=== PATIENT | female | born 1980 | race Two or more races ===

== ENCOUNTER → 2017-04-06 | Outpatient (CLI) | payer OTHER ==
--- NOTE | 2017-04-06 10:59 | RAD ---
UPPER EXT JOINT WO CONT LEFT dated 04/06/2017 10:30 AM Indication: LEFT SHOULDER PAIN X 3 MONTHS, NKI, NO SX HX, NO PRIORS pain , 3 months. Comparison: No comparison is available. Technique: Routine multiplanar multisequence imaging performed. No contrast administered. Findings: Study is limited due to motion artifact. There is intermediate T2 signal throughout the supraspinatus and infraspinatus portions of the rotator cuff. There is a small full-thickness defect of the anterior supraspinatus footplate that measures about 9 mm maximum thickness. Minimal cuff retraction. Subscapularis is intact. Mild hypertrophic change of the AC joint. No significant undersurface spurring. Trace amount of subacromial/subdeltoid bursal fluid. Mild increased signal within the substance of the long head biceps tendon proximally. Extra articular portion courses within the bicipital groove. Biceps anchor intact. Glenoid labrum is grossly intact. No apparent labral tear or para labral cyst. No glenohumeral joint effusion or loose body. Suprascapular and spinoglenoid notches are clear. No significant muscle edema or muscle atrophy. IMPRESSION: 1. Rotator cuff tendinopathy with small full-thickness tear at the anterior supraspinatus footplate. 2. Mild AC joint arthropathy. 3. Mild proximal biceps tendinosis. Electronically signed by: Suraj Champion MD (04/06/2017 10:55 AM) [id number]
== END | disposition home or self-care (01) ==
LOC: MRI 09:54
PROVIDERS: ATTEND Family Medicine
DX: M75.102 Unspecified rotator cuff tear or rupture of left shoulder, not specified as traumatic (principal); M12.812 Other specific arthropathies, not elsewhere classified, left shoulder
CPT/HCPCS: 73221

== ENCOUNTER 2017-04-11 20:13 | Emergency (ER) | payer SELFPAY ==
[~2017-04-11] VITALS: Ht 160 cm; Wt 95.3 kg
[2017-04-11 20:55] VITALS: BP 164/98
[2017-04-11] MEDS ORDERED: FLUORESCEIN OPHTH TEST STRIP. OS ONE (21:15)
[2017-04-11] MEDS ORDERED: TETRACAINE 0.5% OPHTH SOLUTION 4ML BOTTLE. OS ONE (21:15)
[2017-04-11] MEDS ORDERED: DIPHTH,PERTUSS(ACELL),TET TOX 0.5 ML DISP.SYRIN. VAX IM ONE (22:15)
[2017-04-11] MEDS ORDERED: TRAM-48 PO (22:46)
[2017-04-11] MEDS ORDERED: ERYT1OIN6 OP (22:46)
--- NOTE | 2017-04-11 22:47 | PHYS DOC ---
Adult General Chief Complaint Chief Complaint: EYE PROBLEMS HPI HPI Patient is a 37 year old female who presents with possible foreign body to the right eye. Patient states she was cutting wood with no eye protection and a piece of wood could have gotten in her right eye. Denies any vision loss. Review of Systems Review of Systems Constitutional: Denies fever or chills [] Eyes: Possible foreign body to the right eye. Denies change in visual acuity, redness Musculoskeletal: Denies back pain or joint pain [] Integument: Denies rash or skin lesions [] Neurologic: Denies headache, focal weakness or sensory changes [] All other systems were reviewed and found to be within normal limits, except as documented in this note. Current Medications Current Medications Current Medications Medications (Trade) Dose Ordered Sig/Rosibel Start Time Stop Time Status Last Admin Dose Admin Diphtheria/ Tetanus/Acell Pertussis (Boostrix) 0.5 ml ONCE ONCE 04/11/17 22:15 04/11/17 22:16 DC 04/11/17 22:48 0.5 ML Fluorescein Sodium (Ful-Leila) 1 strip 1X ONCE 04/11/17 21:15 04/11/17 21:25 DC 04/11/17 21:18 1 STRIP Tetracaine HCl (Tetracaine) 1 drop 1X ONCE 04/11/17 21:15 04/11/17 21:25 DC 04/11/17 21:17 1 DROP Allergies Allergies Allergies Coded Allergies Type Severity Reaction Last Updated Verified No Known Drug Allergies 04/11/17 No Physical Exam Physical Exam Constitutional: Well developed, well nourished, no acute distress, non-toxic appearance. [] HENT: Normocephalic, atraumatic, bilateral external ears normal, oropharynx moist, no oral exudates, nose normal. [] Eyes: PERRLA, EOMI, right conjunctiva is mildly injected most of it from irritation. No obvious foreign object noted. Skin: Warm, dry, no erythema, no rash. [] Back: No tenderness, no CVA tenderness. [] Extremities: No tenderness, no cyanosis, no clubbing, ROM intact, no edema. [] Neurologic: Alert and oriented X 3, normal motor function, normal sensory function, no focal deficits noted. [] Psychologic: Affect normal, judgement normal, mood normal. [] EKG EKG [] Radiology/Procedures Radiology/Procedures Indication: Right eye possible foreign object Procedure: The area of the foreign body was right eye. Local anesthesia over the foreign body site was [ANESTHESIA:]. The foreign body to drops of tetracaine, the eye was stained with fluorescein, no foreign object was noted. The patient's tetanus was updated The patient tolerated the procedure well Complications: none Course & Med Decision Making Course & Med Decision Making Pertinent Labs and Imaging studies reviewed. (See chart for details) Patient is in the ED with complaints of a possible foreign object to the right eye, she was cutting wood with no eye protection. No obvious foreign object was noted in the eye exam. Patient was discharged with erythromycin and Ultram. Tetanus was updated. Follow-up with tire room supervisor in 1-3 days if symptoms continue. Dragon Disclaimer Dragon Disclaimer This electronic medical record was generated, in whole or in part, using a voice recognition dictation system. Departure Departure Impression: Primary Impression: Foreign body of right eye Disposition: HOME, SELF-CARE Condition: STABLE Referrals: NO PCP (PCP) LATOYA STALLINGS MD follow up in 1-3 days Patient Instructions: Eye - Foreign Body Additional Instructions: You were seen with concern for foreign object to the right eye. We did not find any foreign object to the right eye but you could have a corneal abrasion/cut in the eye from a piece of wood touching your eye. We sent you home with erythromycin eye ointment. Use it as prescribed. Take the prescribed pain medicine as needed for pain. Follow-up with the provided tire room supervisor/eye doctor in the next 1-3 days. Scripts Tramadol Hcl (ULTRAM) 50 Mg Tablet 1 TAB PO Q6HRS, #30 TAB Prov: CECILE HAYWOOD APRN 04/11/17 Erythromycin Base (Erythromycin) 1 Gm Oint...g. 1 KAJAL OP Q4HRS W/A, #1 MISC right eye Prov: CECILE HAYWOOD APRN 04/11/17 Problem Qualifiers Primary Impression: Foreign body of right eye Encounter type: initial encounter Qualified Codes: T15.91XA - Foreign body on external eye, part unspecified, right eye, initial encounter CECILE HAYWOOD APRN Apr 11, 2017 22:47
== END 2017-04-11 23:00 | disposition home or self-care (01) ==
LOC: ER 20:13
DX: T15.91XA Foreign body on external eye, part unspecified, right eye, initial encounter (principal)
CPT/HCPCS: 90471; 90715; 99283-25

== ENCOUNTER 2019-11-09 13:31 | Emergency (ER) | payer SELFPAY ==
[~2019-11-09] VITALS: Ht 160 cm; Wt 107.2 kg
[~2019-11-09 13:31] MED LIST: ERYT1OIN6 OP; TRAM-48 PO
[2019-11-09 14:28] LABS: BILIRUBIN,URINE NEGATIVE (NEG); CLARITY,URINE CLOUDY; COLOR,URINE RED; NITRITE,URINE NEGATIVE (NEG); PROTEIN,URINE 100 mg/dL (NEG-TRACE); UROBILINOGEN,URINE 0.2 mg/dL (0.2 mg/dL)
[2019-11-09 14:36] LABS: RBC,URINE TNTC /HPF (0-2)
[2019-11-09 14:37] LABS: BACTERIA,URINE 0 /HPF (0-FEW); SQUAMOUS EPITHELIAL CELL,UR FEW /LPF
--- NOTE | 2019-11-09 15:24 | PHYS DOC ---
Past Medical History Past Medical History: No Pertinent History Past Surgical History: , Tubal ligation Smoking Status: Never Smoker Alcohol Use: None Drug Use: None General Adult EDM: Chief Complaint: VAGINAL PROBLEM HPI: HPI: Patient is a 39 year old female who presents to the emergency d [facility] with complaints of irregular vaginal bleeding. She reports that she had a period began on October 29, 2019 it lasted for approximately 7 or 8 days the bleeding stopped for 2 days and then she began to bleed again today. She denies any irregular vaginal odor, irregular vaginal discharge prior to the onset of the bleeding. She denies any abdominal pain, nausea, vomiting, diarrhea, back pain, fever, cough, shortness of breath, dysuria, or foul-smelling urine. She denies any pain at this time. Patient states that last March, April, and May she did not have a menstrual cycle. She states she has been having some irregular menstrual bleeding for months. Patient reports history of a BTL 20 years ago, she denies any concerns of , the patient is 3, para 3. Review of Systems: Review of Systems: Constitutional: Denies fever or chills. [] GI: Denies abdominal pain, nausea, vomiting, or diarrhea. [] : Denies dysuria; see HPI. [] Musculoskeletal: Denies back pain or joint pain. [] Integument: Denies rash. [] Psychiatric: Denies depression or anxiety. [] Heart Score: Risk Factors: Risk Factors: DM, Current or recent (<one month) smoker, HTN, HLP, family history of CAD, obesity. Risk Scores: Score 0 - 3: 2.5% MACE over next 6 weeks - Discharge Home Score 4 - 6: 20.3% MACE over next 6 weeks - Admit for Clinical Observation Score 7 - 10: 72.7% MACE over next 6 weeks - Early Invasive Strategies Allergies: Allergies: Allergies Coded Allergies Type Severity Reaction Last Updated Verified No Known Drug Allergies 04/11/17 No Physical Exam: PE: Constitutional: Well developed, well nourished, no acute distress, non-toxic appearance. HENT: Normocephalic, atraumatic, bilateral external ears normal, nose normal. Eyes: PERRLA, EOMI, conjunctiva normal, no discharge. Neck: Normal range of motion, no stridor. Cardiovascular: Heart rate regular rhythm Lungs & Thorax: Respirations even and unlabored, no retractions, no respiratory distress Pelvic Exam: [employer] present Susana SANCHEZ Abdomen: Nontender, soft External Genitalia: Normal Skin Speculum: Normal vaginal mucosa, normal bloody cervical discharge without clots Bimanual: No adnexal masses or tenderness, No CMT Skin: Warm, dry, no erythema, no rash. Extremities: No cyanosis, ROM intact, no edema. Neurologic: Alert and oriented X 3, no focal deficits noted. Psychologic: Affect normal, judgement normal, mood normal. Current Patient Data: Labs: Laboratory Tests Test 11/09/19 14:05 11/09/19 14:17 Urine Collection Type U cath Urine Color Red Urine Clarity Cloudy Urine pH 6.0 (<5.0-8.0) Urine Specific [place] <=1.005 (1.000-1.030) Urine Protein 100 mg/dL (NEG-TRACE) Urine Glucose (UA) Negative mg/dL (NEG) Urine Ketones (Stick) Negative mg/dL (NEG) Urine Blood Large (NEG) Urine Nitrite Negative (NEG) Urine Bilirubin Negative (NEG) Urine Urobilinogen Dipstick 0.2 mg/dL (0.2 mg/dL) Urine Leukocyte Esterase Small (NEG) Urine RBC Tntc /HPF (0-2) Urine WBC 1-4 /HPF (0-4) Urine Squamous Epithelial Cells Few /LPF Urine Bacteria 0 /HPF (0-FEW) POC Urine HCG, Qualitative Hcg negative (Negative) Vital Signs: Vital Signs Date Time Temp Pulse Resp B/P (MAP) Pulse Ox O2 Delivery O2 Flow Rate FiO2 11/09/19 14:43 98.8 99 22 137/63 (87) 99 Room Air 98.8 EKG: EKG: [] Radiology/Procedures: Radiology/Procedures: [] Course & Med Decision Making: Course & Med Decision Making Pertinent Labs and Imaging studies reviewed. (See chart for details) Patient is a 39-year-old female who presented to the emergency department with complaints of vaginal bleeding. She reported history of irregular menstrual cycles. Patient reported concerned because she just had a period last week then it stopped for 2 days and she began bleeding again today. Pelvic exam reveals light bleeding from the cervix, no abnormal discharge, no CMT or adnexal tenderness UA is likely contaminated, CBC reveals white blood cell count of 12.9, hemoglobin 10.8, hematocrit 32.6 otherwise unremarkable. Encouraged patient to follow-up with her primary care doctor or her NURSE SPECIAL for further evaluation of irregular menstrual cycles, may take Tylenol or ibuprofen as needed for pain. Return to the ER if symptoms worsen or should begin saturating more than 1 pad an hour. Patient verbalized an understanding of home care, medications, follow-up, and return to ED instructions and was in agreement with the plan of care. [] Dragon Disclaimer: Dragon Disclaimer: This electronic medical record was generated, in whole or in part, using a voice recognition dictation system. Departure Departure Impression: Primary Impression: Vaginal bleeding, abnormal Disposition: HOME, SELF-CARE Condition: STABLE Referrals: NO PCP (PCP) Patient Instructions: Uterine Bleeding, Dysfunctional, [id number] Additional Instructions: Follow-up with your primary care doctor or your NURSE SPECIAL for further evaluation of irregular menstrual cycles. Your urine did not appear infected today. You may take Tylenol or ibuprofen as needed for pain. Return to the ER if symptoms worsen or you are saturating more than 1 pad an hour. Justicifation of Admission Dx: Justifications for Admission: Justification of Admission Dx: N/A ABDIAS HEBERT CHAIRMAN PRESIDENT AND CHIEF EXECUTIVE OFFICER Nov 09, 2019 15:24
[2019-11-09 15:29] LABS: BASO # 0.1 x10^3/uL (0.0-0.2); BASO % 1 % (0-3); EOS # 0.3 x10^3/uL (0.0-0.7); EOS % 3 % (0-3); HEMATOCRIT 32.6 % (36.0-47.0); HEMOGLOBIN 10.8 g/dL (12.0-15.5); LYMPH % 23 % (24-48); MEAN CORPUSCULAR HEMOGLOBIN 26 pg (25-35); MEAN CORPUSCULAR HGB CONC 33 g/dL (31-37); MEAN CORPUSCULAR VOLUME 78 fL (79-100); MONO # 1.1 x10^3/uL (0.0-1.1); MONO % 9 % (0-9); NEUT # 8.3 x10^3/uL (1.8-7.7); NEUT % 65 % (31-73); PLATELET COUNT 572 x10^3/uL (140-400); RED BLOOD COUNT 4.18 x10^6/uL (3.50-5.40); RED CELL DISTRIBUTION WIDTH 17.2 % (11.5-14.5); WHITE BLOOD COUNT 12.9 x10^3/uL (4.0-11.0)
[2019-11-09 16:26] VITALS: BP 118/77
== END 2019-11-09 16:33 | disposition home or self-care (01) ==
LOC: ER 13:31
DX: N93.9 Abnormal uterine and vaginal bleeding, unspecified (principal); Z98.51 Tubal ligation status
CPT/HCPCS: 36415; 81001; 81025; 85025; 87086; 99284